=== PATIENT | female | born 1970 | race Caucasian/White ===

== ENCOUNTER 2021-01-05 07:44 | Emergency (ER) | payer OTHER ==
[2021-01-05 07:59] VITALS: BP 131/86; PULSE 71; TEMP 97; BMI 32.1
[2021-01-05] MEDS ORDERED: DEXAMETHASONE SOD PHOSPHATE 10 MG/1 ML VIAL IM ONE (08:26)
[2021-01-05] MEDS ORDERED: FAMOTIDINE 20 MG TABLET PO ONE (08:26)
[2021-01-05] MEDS ORDERED: DEXAMETHASONE SOD PHOSPHATE 10 MG/1 ML VIAL ONE (08:32)
[2021-01-05] MEDS ORDERED: FAMOTIDINE 20 MG TABLET ONE ×2 (08:33→08:42)
[2021-01-07 15:07] LABS: E.chaff HME IgG Negative (Neg:<1:64)
[2021-01-08 16:11] LABS: BABESIA MICROTI ANTIBODY IGG <1:10 (Neg:<1:10); BABESIA MICROTI ANTIBODY IGM <1:10 (Neg:<1:10)
== END 2021-01-05 09:48 | disposition home or self-care (01) ==
LOC: JERFT 07:44
PROC: 3E023GC Introduction of Other Therapeutic Substance into Muscle, Percutaneous Approach (ICD-10-PCS; principal; 2021-01-05)
DX: L30.9 Dermatitis, unspecified (principal)
CPT/HCPCS: 36415; 86618; 86666; 86753; 96372; 99284-25; J1100

== ENCOUNTER 2021-12-02 04:54 | Day surgery (SDC) | payer OTHER ==
[2021-11-26 14:23] VITALS: BMI 32.7
[2021-12-02 13:33] VITALS: TEMP 98.2
[2021-12-02 14:35] VITALS: BP 143/76; PULSE 61; RESP 15
== END 2021-12-02 14:30 | disposition home or self-care (01) ==
LOC: JASU-ENDO 04:54
PROVIDERS: ATTEND Internal Medicine Gastroenterology
PROC: 3E0H8KZ Introduction of Other Diagnostic Substance into Lower GI, Via Natural or Artificial Opening Endoscopic (ICD-10-PCS; 2021-12-02)
PROC: 0DBP8ZX Excision of Rectum, Via Natural or Artificial Opening Endoscopic, Diagnostic (ICD-10-PCS; principal; 2021-12-02 12:15)
DX: Z12.11 Encounter for screening for malignant neoplasm of colon (principal); D12.8 Benign neoplasm of rectum; K64.8 Other hemorrhoids
CPT/HCPCS: 88305-TC

== ENCOUNTER 2022-02-17 04:41 | Day surgery (SDC) | payer OTHER ==
[2022-02-13 10:46] VITALS: BMI 32.3
[2022-02-17 14:42] VITALS: BP 133/74; PULSE 65; RESP 15; TEMP 98
== END 2022-02-17 12:35 | disposition home or self-care (01) ==
LOC: JASU-ENDO 04:41
PROVIDERS: ATTEND Internal Medicine Gastroenterology
PROC: 0DBP8ZX Excision of Rectum, Via Natural or Artificial Opening Endoscopic, Diagnostic (ICD-10-PCS; principal; 2022-02-17 10:30)
DX: Z12.11 Encounter for screening for malignant neoplasm of colon (principal); K62.1 Rectal polyp
CPT/HCPCS: 88305-TC